=== PATIENT | female | born 1940 | race Caucasian/White ===

== ENCOUNTER → 2024-09-30 16:28 | Outpatient (REF) | payer MEDICARE, SELFPAY | LOC: HWRAD 16:28 | PROVIDERS: ATTENDING PHYSICIAN Internal Medicine Rheumatology; FAMILY PHYSICIAN Internal Medicine; REFERRING PHYSICIAN Dermatology | DX: M79.671 Pain in right foot (principal) | CPT/HCPCS: 73630 ==